=== PATIENT | male | born 1995 | race American Indian/Alaskan Native ===

== ENCOUNTER 2016-10-18 19:19 | Emergency (ER) | payer MEDICAID ==
[2016-10-18 19:19] VITALS: BMI 17.4
[2016-10-18] MEDS ORDERED: Sodium Chloride 0.9% 1,000 ML IV SCH (20:00)
[2016-10-18 20:19] LABS: BASO # 0.01 K/mm3 (0.0-2.0); BASO % 0.1 % (0.0-3.0); EOS % 0.1 % (1.5-5.0); GRAN # 12.53 (1.4-6.5); HEMATOCRIT 44.9 % (42.0-52.0); LYMPH % 6.6 % (22.0-35.0); MEAN CORPUSCULAR HEMOGLOBIN 29.2 pg (25.0-35.0); MEAN CORPUSCULAR HGB CONC 36.5 g/dl (31.0-37.0); MEAN PLATELET VOLUME 10.1 fl (7.0-11.0); MONO # 1.5 (0.1-0.6); MONO % 10.2 % (1.0-6.0); PLATELET COUNT 164 10^3/uL (120.0-450.0); RED CELL DISTRIBUTION WIDTH 12.3 % (11.5-14.5); WHITE BLOOD COUNT 15.1 10^3/ul (4.5-11.0)
--- NOTE | 2016-10-18 20:46 | ED PDOC ---
Arrival/HPI - General Chief Complaint: Fever Time Seen by Provider: 10/18/16 19:33 Historian: Patient - History of Present Illness Narrative History of Present Illness (Text): 10/18/16 20:43 A 20 year old male, who denies any significant past medical history, presents to the emergency department for a fever with a sore throat, which began 1 week ago. The patient denies any nausea, vomiting, chest pain, shortness of breath, abdominal pain, headache, dysuria, hearing changes, vision changes, or any other complaints at this time. Time/Duration: 1 week Symptom Onset: Gradual Symptom Course: Unchanged Activities at Onset: Light Context: Home Past Medical History - Provider Review Nursing Documentation Reviewed: Yes - Cardiac Hx Cardiac Disorders: Yes Hx Heart Murmur: Yes (As a kid.) - Pulmonary Hx Respiratory Disorders: No - Neurological Hx Neurological Disorder: No - HEENT Hx HEENT Disorder: No - Renal Hx Renal Disorder: No - Endocrine/Metabolic Hx Endocrine Disorders: No - Hematological/Oncological Hx Blood Disorders: No - Integumentary Hx Dermatological Disorder: No - Musculoskeletal/Rheumatological Hx Musculoskeletal Disorders: No - Gastrointestinal Hx Gastrointestinal Disorders: No - Genitourinary/Gynecological Hx Genitourinary Disorders: No - Psychiatric Hx Psychophysiologic Disorder: No Hx Substance Use: No - Surgical History Other/Comment: closure foramen ovale - Anesthesia Hx Anesthesia: Yes Hx Anesthesia Reactions: No Family/Social History - Physician Review Nursing Documentation Reviewed: Yes Family/Social History: Unknown Family HX Smoking Status: Never Smoked Hx Alcohol Use: No Hx Substance Use: No Allergies/Home Meds Allergies/Adverse Reactions: Allergies Penicillins Allergy (Verified 03/18/16 14:06) PT UNSURE OF REACTION Review of Systems - Physician Review All systems were reviewed & negative as marked: Yes - Review of Systems Constitutional: Fevers Eyes: absent: Vision Changes ENT: Sore Throat. absent: Hearing Changes Respiratory: absent: SOB Cardiovascular: absent: Chest Pain Gastrointestinal: absent: Abdominal Pain, Nausea, Vomiting Genitourinary Male: absent: Dysuria Neurological: absent: Headache Physical Exam Vital Signs Temp Pulse Resp BP Pulse Ox 10/18/16 22:57 99.1 F 86 17 127/73 97 10/18/16 19:31 100.7 F H 93 H 18 125/74 99 Temperature: Febrile Blood Pressure: Normal Pulse: Regular Respiratory Rate: Normal Appearance: Positive for: Well-Appearing, Non-Toxic, Comfortable Pain Distress: None Mental Status: Positive for: Alert and Oriented X 3 - Systems Exam Head: Present: Atraumatic, Normocephalic Pupils: Present: PERRL Extroacular Muscles: Present: EOMI Conjunctiva: Present: Normal Mouth: Present: Moist Mucous Membranes Pharnyx: Present: ERYTHEMA, Other (lymphadenopathy) Neck: Present: Normal Range of Motion Respiratory/Chest: Present: Clear to Auscultation, Good Air Exchange. No: Respiratory Distress, Accessory Muscle Use Cardiovascular: Present: Regular Rate and Rhythm, Normal S1, S2. No: Murmurs Abdomen: Present: Normal Bowel Sounds. No: Tenderness, Distention, Peritoneal Signs Back: Present: Normal Inspection Upper Extremity: Present: Normal Inspection. No: Cyanosis, Edema Lower Extremity: Present: Normal Inspection. No: Edema Neurological: Present: GCS=15, CN II-XII Intact, Speech Normal Skin: Present: Warm, Dry, Normal Color. No: Rashes Psychiatric: Present: Alert, Oriented x 3, Normal Insight, Normal Concentration Medical Decision Making ED Course and Treatment: 10/18/16 20:49 Impression: A 20 year old male with a fever and sore throat. Differential Diagnosis included but are not limited to: tonsillitis vs. pharyngitis Plan: -- Throat Culture -- Labs -- IV Fluids, Solu-medrol, toradol -- Reassess and disposition Prior Visits: Notes and results from previous visits were reviewed. The patient was last seen in the emergency department on 03/29/16 for a fever. The patient was discharged home. Progress Notes: 10/18/16 23:05 On reevaluation the patient feels better and is in no acute distress. I have discussed the results and plan with the patient, who expresses understanding. Patient given the opportunity to ask question, all questions were answered and there is agreement with the plan to discharge the patient home. Patient is stable for discharge. Patient was instructed to follow up with physician/clinic in 1-2 days or return if symptoms persist/worsen or new concerning symptoms arise. Re-evaluation Time: 23:07 Reassessment Condition: Re-examined, Improved - Lab Interpretations Lab Results: 10/18/16 20:00 Lab Results 10/18/16 20:00: Influenza Typ A,B (EIA) Negative for flu a/b, Grp A Beta Strep Ag Negative 10/18/16 20:00: WBC 15.1 H D, RBC 5.61, Hgb 16.4, Hct 44.9, MCV 80.0, MCH 29.2, MCHC 36.5, RDW 12.3, Plt Count 164, MPV 10.1, Gran % 83.0 H, Lymph % (Auto) 6.6 L, [place] % (Auto) 10.2 H, Eos % (Auto) 0.1 L, Baso % (Auto) 0.1, Gran # 12.53 H, Lymph # 1.0 L, [place] # 1.5 H, Eos # 0.0, Baso # 0.01, Neutrophils % (Manual) 80 H , Lymphocytes % (Manual) 8 L, Monocytes % (Manual) 12 H, Platelet Evaluation Normal I have reviewed the lab results: Yes - Medication Orders Current Medication Orders: Sodium Chloride (Sodium Chloride 0.9%) 1,000 mls @ 80 mls/hr IV .[id number] [facility] Last Admin: 10/18/16 20:08 Dose: 80 mls/hr Discontinued Medications Clarithromycin (Biaxin Filmtab) 500 mg PO STAT STA PRN Reason: Protocol Stop: 10/18/16 23:09 Ketorolac Tromethamine (Toradol) 30 mg IVP ONCE ONE Stop: 10/18/16 19:51 Last Admin: 10/18/16 20:00 Dose: 30 mg Methylprednisolone (Solu-Medrol) 125 mg IVP ONCE ONE Stop: 10/18/16 19:51 Last Admin: 10/18/16 20:00 Dose: 125 mg - Scribe Statement The provider has reviewed the documentation as recorded by the Penny Poole Provider Scribe Attestation: All medical record entries made by the Mervinibkylee were at my direction and personally dictated by me. I have reviewed the chart and agree that the record accurately reflects my personal performance of the history, physical exam, medical decision making, and the department course for this patient. I have also personally directed, reviewed, and agree with the discharge instructions and disposition. Disposition/Present on Arrival - Present on Arrival Any Indicators Present on Arrival: No History of DVT/PE: No History of Uncontrolled Diabetes: No Urinary Catheter: No History of Decub. Ulcer: No History Surgical Site Infection Following: None - Disposition Have Diagnosis and Disposition been Completed?: Yes Diagnosis: Acute bacterial tonsillitis Disposition: HOME/ ROUTINE Disposition Time: 23:07 Patient Problems: Current Active Problems Problem Status Onset Acute bacterial tonsillitis Acute Condition: GOOD Discharge Instructions (ExitCare): Pharyngitis (ED) Prescriptions: Clarithromycin [Biaxin Filmtab] 500 mg PO BID #20 tab Referrals: Sarah Andrade MD [Primary Care Provider] - Follow up with primary Forms: [email or web address] (Amharic)
[2016-10-18 21:37] LABS: NEUTROPHIL 80 % (50.0-70.0); PLATELET ESTIMATE NORMAL (NORMAL)
[2016-10-18 22:58] VITALS: BP 127/73; PULSE 86; RESP 17; TEMP 99.1; O2SAT 97
== END 2016-10-18 23:23 | disposition home or self-care (01) ==
LOC: ED 19:19
DX: J03.90 Acute tonsillitis, unspecified (principal)
CPT/HCPCS: 85025; 86308; 87070; 87430; 87804; 96374; 96375; 99284; J1885; J2930; J7040

== ENCOUNTER 2018-06-07 11:27 | Emergency (ER) | payer MEDICAID ==
[2018-06-07 11:40] VITALS: RESP 18; BMI 18.7
--- NOTE | 2018-06-07 12:57 | ED PDOC ---
Arrival/HPI - General Chief Complaint: Eye Problem Time Seen by Provider: 06/07/18 12:25 Historian: Patient - History of Present Illness Narrative History of Present Illness (Text): 06/07/18 12:46 22 y/o male, no significant pmh except lt. eye injury multiple times in the past, penicillin allergy, c/o lt. eye tearing and blurry vision x 1 week with no fall or trauma. Left eye irritation, associated with irritation and blurry vision, no headache or neck pain, no history of sickle cell, no numbness or tingling, no palpitation, no rash, no other medical or psychological complaints. Past Medical History - Provider Review Nursing Documentation Reviewed: Yes - Infectious Disease Hx of Infectious Diseases: None - Cardiac Hx Cardiac Disorders: Yes Hx Heart Murmur: Yes (As a kid.) - Pulmonary Hx Respiratory Disorders: No - Neurological Hx Neurological Disorder: No - HEENT Hx HEENT Disorder: No - Renal Hx Renal Disorder: No - Endocrine/Metabolic Hx Endocrine Disorders: No - Hematological/Oncological Hx Blood Disorders: No - Integumentary Hx Dermatological Disorder: No - Musculoskeletal/Rheumatological Hx Musculoskeletal Disorders: No - Gastrointestinal Hx Gastrointestinal Disorders: No - Genitourinary/Gynecological Hx Genitourinary Disorders: No - Psychiatric Hx Psychophysiologic Disorder: No Hx Substance Use: No - Surgical History Other/Comment: closure foramen ovale - Anesthesia Hx Anesthesia: Yes Hx Anesthesia Reactions: No Family/Social History - Physician Review Nursing Documentation Reviewed: Yes Family/Social History: Unknown Family HX Smoking Status: Never Smoked Hx Alcohol Use: No Hx Substance Use: No Allergies/Home Meds Allergies/Adverse Reactions: Allergies Penicillins Allergy (Verified 03/18/16 14:06) PT UNSURE OF REACTION Review of Systems - Review of Systems Constitutional: absent: Fatigue, Fevers Eyes: Vision Changes, Eye Pain ENT: absent: Hearing Changes Respiratory: absent: SOB, Cough Cardiovascular: absent: Chest Pain Gastrointestinal: absent: Abdominal Pain, Nausea, Vomiting Musculoskeletal: absent: Arthralgias, Back Pain Skin: absent: Rash, Pruritis Psychiatric: absent: Anxiety, Depression, Suicidal Ideation Physical Exam Vital Signs Reviewed: Yes Vital Signs Temp Pulse Resp BP Pulse Ox 06/07/18 11:39 98.2 F 73 18 117/75 99 Temperature: Afebrile Blood Pressure: Normal Pulse: Regular Respiratory Rate: Normal Appearance: Positive for: Well-Appearing, Non-Toxic, Comfortable Pain Distress: Mild Mental Status: Positive for: Alert and Oriented X 3 - Systems Exam Head: Present: Atraumatic, Normocephalic Pupils: Present: PERRL Extroacular Muscles: Present: EOMI Conjunctiva: Present: Normal, Other (Eyes: bilateral vision 20/50, lt. eye vision 20/100 vs. rt. eye vision 20/20, lt. eye examined with fluorsein strip show no corneal abrasion/laceration and negative jen sign, lt. eye intraocular pressure 16-30 (tool error?), FREOM without limitation, no periorbital swelling, no entractment. ) Mouth: Present: Moist Mucous Membranes Neck: Present: Normal Range of Motion Respiratory/Chest: Present: Clear to Auscultation, Good Air Exchange. No: Respiratory Distress, Accessory Muscle Use Cardiovascular: Present: Regular Rate and Rhythm, Normal S1, S2. No: Murmurs Abdomen: No: Tenderness, Distention, Peritoneal Signs Back: Present: Normal Inspection Upper Extremity: Present: Normal Inspection. No: Cyanosis, Edema Lower Extremity: Present: Normal Inspection. No: Edema Neurological: Present: GCS=15, CN II-XII Intact, Speech Normal Skin: Present: Warm, Dry, Normal Color. No: Rashes Psychiatric: Present: Alert, Oriented x 3, Normal Insight, Normal Concentration Medical Decision Making ED Course and Treatment: 06/07/18 12:58 -Discussed with Dr. Mccain about this case, recommend to call opthalmologist. -Opthalmologist consult. 06/07/18 13:16 -I spoke to the opthalmologist control system computer scientist, Dr. Boyer, discussed about the physical exam and intraocular pressure. Dr. Boyer recommend don't give any eye drop and don't treat it, advised to send the patient to the [place] address as they would further evaluate the patient especially this is on going for 1 week. I discussed with Dr. Young and she agreed with this consult. I discussed with the patient and he agreed with this plan of care. -Please go to the opthalmologist immediately STAT! as the opthalmologist is expecting you at the [place] [facility], go see your own pmd and neurologist within 2 days, return to the ER for any new or worsening signs or symptoms. 06/07/18 19:29 -I spoke to the opthalmologist Dr. Karina Roblero MD, stated that she saw the patient and evaluated the patient, already started to manage his intraocular pressure already and the patient discharge home. - PA / SHERIFF'S OFFICER / Resident Statement MD/DO has reviewed & agrees with the documentation as recorded. Disposition/Present on Arrival - Present on Arrival Any Indicators Present on Arrival: No History of DVT/PE: No History of Uncontrolled Diabetes: No Urinary Catheter: No History of Decub. Ulcer: No History Surgical Site Infection Following: None - Disposition Have Diagnosis and Disposition been Completed?: Yes Diagnosis: Blurry vision Disposition: HOME/ ROUTINE Disposition Time: 13:20 Patient Plan: Discharge Condition: GOOD Additional Instructions: -Please go to the opthalmologist immediately STAT! as the opthalmologist is expecting you at the [place] [facility], go see your own pmd and neurologist within 2 days, return to the ER for any new or worsening signs or symptoms. Referrals: Souleymane Sterling MD [Staff Provider] - Follow up with primary Annika Collins MD [Non-Staff] - Follow up with primary Forms: [facility] (Turkish), WORK NOTE
[2018-06-07 13:24] VITALS: BP 118/73; PULSE 65; TEMP 98; O2SAT 100
== END 2018-06-07 13:43 | disposition home or self-care (01) ==
LOC: ED 11:27
DX: H53.8 Other visual disturbances (principal); Z88.0 Allergy status to penicillin